=== PATIENT | female | born 1965 | race Caucasian/White ===

== ENCOUNTER 2017-10-08 11:37 | Inpatient (IN) | payer MEDICARE, MEDICAID ==
[~2017-10-08] VITALS: Ht 154.9 cm; Wt 75.3 kg
[2017-10-08] MEDS ORDERED: ONDANSETRON HCL 4MG/2ML VIAL IV STA (12:05)
[2017-10-08 12:55] LABS: BASOPHILS % 0.7 % (0.0-2.0); EOSINOPHILS % 1.4 % (0.0-5.0); HEMATOCRIT. 39.3 % (36.0-48.0); HEMOGLOBIN. 12.9 g/dL (12.0-16.0); LYMPHOCYTES % 15.7 % (20.0-50.0); MEAN CORPUSCULAR HEMOGLOBIN 29.7 pg (28.0-32.0); MEAN CORPUSCULAR VOLUME 90.5 fL (81.0-99.0); MEAN PLATELET VOLUME 8.5 fl (7.4-10.4); MONOCYTES % 8.3 % (2.0-8.0); NEUTROPHILS % 73.9 % (40.0-76.0); PLATELET 225 x1000/uL (130-400); RED BLOOD CELL COUNT 4.34 mill/uL (4.2-5.4); RED CELL DISTRIBUTION WIDTH 14.2 % (11.6-14.6)
[2017-10-08 13:23] LABS: CARBON DIOXIDE 31 mEq/L (21-32); CHLORIDE 94 mEq/L (98-107); TROPONIN I 0.04 ng/mL (0.00-0.04)
[2017-10-08] MEDS ORDERED: HYDROCODONE/ACETAMINOPHEN 5/325MG TABLET PO PRN (15:15)
[2017-10-08] MEDS ORDERED: DOCUSATE SODIUM 100MG CAPSULE PO PRN (15:15)
[2017-10-08] MEDS ORDERED: ACETAMINOPHEN 325MG TABLET PO PRN (15:15)
[2017-10-08] MEDS ORDERED: ONDANSETRON HCL 4MG/2ML VIAL IV PRN (15:15)
[2017-10-08] MEDS ORDERED: MAGNESIUM/ALUMINUM HYDROXIDE/SIMETHICONE 30ML UDC PO PRN (15:15)
[2017-10-08] MEDS ORDERED: IPRATROPIUM/ALBUTEROL 0.5-3(2.5)MG/3ML NEB INH PRN (15:15)
[2017-10-08] MEDS ORDERED: SODIUM POLYSTYRENE SULFONATE 15 G/60 ML BOT PO NR (15:15)
[2017-10-08 15:20] LABS: CLARITY URINE CLEAR (CLEAR); COLOR URINE YELLOW (YELLOW); GLUCOSE URINE 2+ (NEGATIVE); KETONES URINE NEGATIVE (NEGATIVE); LEUKOCYTE ESTERASE URINE NEGATIVE (NEGATIVE); NITRITE URINE NEGATIVE (NEGATIVE); OCCULT BLOOD URINE 1+ (NEGATIVE); PROTEIN URINE 4+ (NEGATIVE); SPECIFIC GRAVITY URINE 1.017 (1.005-1.030); UROBILINOGEN URINE 0.2 E.U./dL (0.2-1.0)
[2017-10-08 22:55] LABS: CREATINE KINASE MB FRACTION 12.2 ng/mL (0.5-3.6); TROPONIN I 0.03 ng/mL (0.00-0.04)
[2017-10-08 23:00] VITALS: BP 165/89
[2017-10-08] MEDS ORDERED: DEXTROSE 50% WATER 50ML SYRINGE IV PRN (23:30)
[2017-10-08] MEDS: BLOOD SUGAR DIAGNOSTIC STRIP TEST SCH (23:35)
[2017-10-08] MEDS: CLONIDINE 0.1MG TABLET PO PRN (23:38)
[2017-10-08] MEDS ORDERED: LORA5SOL6 PO (23:43)
[2017-10-08] MEDS ORDERED: TOFA5TAB PO (23:43)
[2017-10-08] MEDS ORDERED: PROC5TAB PO (23:52)
[2017-10-08] MEDS ORDERED: MEGE40TA2 PO (23:52)
[2017-10-08] MEDS ORDERED: PRED5TAB48 PO (23:52)
[2017-10-08] MEDS ORDERED: SULF500T4 PO (23:52)
[2017-10-08] MEDS ORDERED: ASPI-1159 PO (23:52)
[2017-10-08] MEDS ORDERED: HYDR200T PO (23:52)
[2017-10-08] MEDS ORDERED: DILT240C56 PO (23:52)
[2017-10-08] MEDS ORDERED: ACET167L14 PO (23:52)
[2017-10-09] VITALS (7 sets, daily range): BP systolic 127–192; BP diastolic 68–90
[2017-10-09] MEDS ORDERED: NON FORMULARY PATIENT HOME MED EA XX SCH
[2017-10-09] MEDS: CLONIDINE 0.1MG TABLET PO PRN ×2 (05:04→12:53)
[2017-10-09 07:05] LABS: EOSINOPHILS % 3.6 % (0.0-5.0); HEMATOCRIT. 34.8 % (36.0-48.0); HEMOGLOBIN. 11.3 g/dL (12.0-16.0); LYMPHOCYTES % 28.7 % (20.0-50.0); MEAN CORPUSCULAR HEMOGLOBIN 29.4 pg (28.0-32.0); MEAN CORPUSCULAR VOLUME 90.4 fL (81.0-99.0); MEAN PLATELET VOLUME 8.9 fl (7.4-10.4); NEUTROPHILS % 54.7 % (40.0-76.0); PLATELET 197 x1000/uL (130-400); RED BLOOD CELL COUNT 3.86 mill/uL (4.2-5.4); RED CELL DISTRIBUTION WIDTH 14.1 % (11.6-14.6)
[2017-10-09] MEDS: BLOOD SUGAR DIAGNOSTIC STRIP TEST SCH ×4 (07:09→22:20)
[2017-10-09] MEDS: INSULIN LISPRO 100 UNITS/ML SUBCUT SCH ×4 (08:10→21:00)
[2017-10-09 08:25] LABS: CREATINE KINASE MB FRACTION 6.9 ng/mL (0.5-3.6); TROPONIN I 0.04 ng/mL (0.00-0.04)
[2017-10-09] MEDS: PREDNISONE 5MG TABLET PO SCH (08:34)
[2017-10-09] MEDS: TOFACITINIB 5 MG PO SCH (08:34)
[2017-10-09] MEDS: DILTIAZEM HCL 240MG ER (24HR) PO SCH (08:34)
[2017-10-09] MEDS: ASPIRIN 81MG EC TABLET PO SCH (08:34)
[2017-10-09] MEDS: HYDROXYCHLOROQUINE SULFATE 200MG TABLET PO SCH (08:34)
[2017-10-09] MEDS: MEGESTROL ACETATE 40MG TABLET PO SCH (08:34)
[2017-10-09] MEDS: SULFASALAZINE 500MG TABLET PO SCH ×2 (08:35→16:43)
[2017-10-10 00:04] VITALS: BP 133/63
[2017-10-10 04:00] VITALS: BP 148/67
[2017-10-10 06:16] LABS: BASOPHILS % 0.6 % (0.0-2.0); HEMATOCRIT. 38.2 % (36.0-48.0); HEMOGLOBIN. 12.4 g/dL (12.0-16.0); LYMPHOCYTES % 23.9 % (20.0-50.0); MEAN CORPUSCULAR HEMOGLOBIN 29.4 pg (28.0-32.0); MEAN CORPUSCULAR VOLUME 90.2 fL (81.0-99.0); MEAN PLATELET VOLUME 9.2 fl (7.4-10.4); MONOCYTES % 10.8 % (2.0-8.0); NEUTROPHILS % 61.7 % (40.0-76.0); PLATELET 190 x1000/uL (130-400); RED BLOOD CELL COUNT 4.23 mill/uL (4.2-5.4); RED CELL DISTRIBUTION WIDTH 14.4 % (11.6-14.6)
[2017-10-10] MEDS: BLOOD SUGAR DIAGNOSTIC STRIP TEST SCH ×3 (07:40→17:03)
[2017-10-10 08:00] VITALS: BP 128/70
[2017-10-10] MEDS: TOFACITINIB 5 MG PO SCH (08:31)
[2017-10-10] MEDS: DILTIAZEM HCL 240MG ER (24HR) PO SCH (08:32)
[2017-10-10] MEDS: ASPIRIN 81MG EC TABLET PO SCH (08:32)
[2017-10-10] MEDS: MEGESTROL ACETATE 40MG TABLET PO SCH (08:32)
[2017-10-10] MEDS: SULFASALAZINE 500MG TABLET PO SCH ×2 (08:32→16:28)
[2017-10-10] MEDS: PREDNISONE 5MG TABLET PO SCH (08:32)
[2017-10-10] MEDS: HYDROXYCHLOROQUINE SULFATE 200MG TABLET PO SCH (08:32)
[2017-10-10] MEDS: INSULIN LISPRO 100 UNITS/ML SUBCUT SCH ×3 (08:33→17:25)
[2017-10-10 12:00] VITALS: BP 140/69
[2017-10-10 12:20] VITALS: BP 140/69
[2017-10-10 16:00] VITALS: BP 155/75
== END 2017-10-10 18:40 | disposition home or self-care (01) | DRG 77 ==
LOC: ER 12:06 → 7WST 14:57 → ENRESERV 21:25
PROVIDERS: ADMIT Internal Medicine; ATTEND Internal Medicine
PROC: 5A1D70Z Performance of Urinary Filtration, Intermittent, Less than 6 Hours Per Day (ICD-10-PCS; principal; 2017-10-09)
DX: I67.4 Hypertensive encephalopathy (principal); N18.6 End stage renal disease; I13.2 Hypertensive heart and chronic kidney disease with heart failure and with stage 5 chronic kidney disease, or end stage renal disease; E11.22 Type 2 diabetes mellitus with diabetic chronic kidney disease; E87.5 Hyperkalemia; I50.30 Unspecified diastolic (congestive) heart failure; E87.70 Fluid overload, unspecified; D64.9 Anemia, unspecified; Z79.82 Long term (current) use of aspirin; Z91.19 Patient's noncompliance with other medical treatment and regimen; Z99.2 Dependence on renal dialysis
CPT/HCPCS: 36415; 70450; 71010; 80048; 80053; 80061; 81001; 82550; 82553; 82962; 83880; 84443; 84484; 85025; 85610; 87040; 93005; 93306; 93970; 96374; 99291; J1815; J2405; J7030; J7512